=== PATIENT | male | born 1970 | race Caucasian/White ===

== ENCOUNTER → 2022-02-18 15:32 | Outpatient (CLI) | payer OTHER, SELFPAY ==
--- NOTE | ~2022-02-18 | US_ITS ---
EXAMINATION: US soft tissue head and neck DATE: 02/18/2022 16:11 INDICATION: Right neck mass. TECHNIQUE: Multiple grayscale and Doppler ultrasound images of the neck were obtained. COMPARISON: None FINDINGS: There is a 2.2 x 0.7 x 1.9 cm hyperechoic mass in the patient's area of concern in right po sterior neck. IMPRESSION: 1. 2.2 cm hyperechoic mass in the patient's area of concern in right posterior neck, most likely a li zack. Reviewed, dictated and finalized at location A. NURSE IMPRESSION: 1. 2.2 cm hyperechoic mass in the patient's area of concern in right posterior neck, most likely a lipoma.
== END ==
PROVIDERS: PCP Internal Medicine; Visit Provider Internal Medicine
DX: Z87.891 Personal history of nicotine dependence (principal); R22.0 Localized swelling, mass and lump, head; R22.1 Localized swelling, mass and lump, neck
CPT/HCPCS: 76536

== ENCOUNTER 2022-04-05 00:34 | Day surgery (SDC) | payer OTHER, SELFPAY ==
[2022-03-26 16:10] VITALS: BMI 31.1
--- NOTE | 2022-03-26 16:15 | SUR.PREOP ---
Report to the Outpatient Waiting Room, entrance under the green pavilion located off [facility], at time 0600 on date 04/05/22. Planned Procedure Time: 0730. Time changes happen often and if your time is changed the preop area will call you the afternoon before. - You and your visitor will be asked to self-screen and do not enter if you have any COVID symptoms. - Only one visitor is requested with a max of two and NO children visitors are allowed at this time. - The patient visitor may be requested to leave or wait in car when not with patient due to distancing restrictions. - A mask is optional within the hospital. Patients may have clear liquids (water, carbonated beverages, clear teas, apple juice) until 3 hours prior to surgery with a maximum of 20 ounces. - No food from midnight until time of surgery - Infants may have breast milk until 4 hours before surgery, infant formula 6 hours prior to surgery. - Children will be allowed to drink immediately following surgery. If applicable, please bring a bottle or sippy cup to assist with drinking. Juice, water, soda, and popsicles are readily available. For infants on formula, please bring formula the day of surgery. Pacifiers are allowed. Take the following medications with a SIP of water the morning of surgery: ___AMLODIPINE Medications to discontinue per physician VITAMINS AND SUPPLEMENTS 3 DAYS PRIOR_HOLD OMEPRAZOLE DAY OF SURGERY Date to take last dose Please no make-up, nail burundian, hairspray, perfume, deodorant, or body powder the day of surgery. No jewelry (including any body piercings) or valuables the day of surgery, leave them at home. Please take a shower or bath the night before, or the morning of, surgery with an antibacterial soap. Wear comfortable, loose fitting clothing. Children are encouraged to wear pajamas. - Jewelry must be removed prior to entering the operating room. Rings and piercings that are not removed may be cut off. - The hospital will not accept responsibility for valuables. - Please leave all valuables, including medications, at home the day of surgery. If you are going home after surgery, a licensed customer service driver must drive you home. - NO public transportation without another adult if you receive anesthesia. - We recommend that an adult stay with you for 24 hours following discharge. - We also recommend that you do not drive, make important decision, drink alcoholic beverages, or take any drugs that were not prescribed by your health care provider for at least 24 hours after your discharge time. For Pediatric surgeries, we recommend two adults accompany the child home. Follow any additional instructions given to you from your surgeon. If you or anyone in your household have experienced Covid symptoms in the past week, please notify your surgeon or the nurse liaison at the phone number below for possible testing. Telephone instructions given to _PATIENT__and asked if any additional questions and then verbalized understanding. Patient advised to call surgeon office or pre surgery nurse liaison [phone] if any additional questions.
--- NOTE | 2022-04-03 19:02 | PM.SD2 ---
Same Day Admit/Disch: HPI History of Present Illness Chief complaint: subcutaneous mass of neck Narrative: Andrea Vasquez is a 52 year old male who noted a subcutaneous mass in the right posterior neck in December. This has been tender and sometimes painful. An U/S showed a 2.2cm mass most consistent with a lipoma. He is taken to surgery now for excision. [facility] Past Medical History Medical History GERD (gastroesophageal reflux disease) Hypertension Surgical History Surgical History S/P cervical spinal fusion Family History Family History Father [place] (myocardial infarction) Hypertension Mother Scoliosis Sibling Hypertension Breast cancer Heart disease Bladder cancer Unknown Heart disease Cerebrovascular accident Hypertension Social History Social History Smoking status: Former smoker Alcohol intake: current Living arrangements: with family Spiritual care concerns: No Same Day Admit/Disch: Med Pre-admit Medications Home Medications Medication Instructions Recorded Confirmed Type amlodipine 5 mg tablet 5 mg PO DAILY 02/26/22 04/05/22 History multivitamin 1 tablet PO DAILY 02/26/22 04/05/22 History omeprazole 40 mg capsule,delayed 40 mg PO DAILY 03/26/22 04/05/22 History release hydrocodone 5 mg-acetaminophen 325 1 - 2 tablet PO Q6H PRN pain #12 04/05/22 Rx mg tablet tabs ketorolac 10 mg tablet 10 mg PO Q6H 4 days #16 tabs 04/05/22 Rx Exam Const: General: comfortable, no acute distress, alert and awake HENMT: Head: normocephalic and atraumatic Mouth: Yes Normal oral and palatal mucosa present Eyes: Conjunctivae: conjunctivae normal Pupils: Equal, round and reactive pupils present EOM: EOMs intact bilaterally Neck: Neck: no lymphadenopathy, supple, nontender and other (2x2 cm flattened sq mass posterolateral right neck) Resp: Effort & Inspection: normal respiratory effort Auscultation: clear to auscultation bilaterally Cardio: Rate: regular rate Rhythm: regular rhythm Heart sounds: no gallops, no murmurs and no rubs GI: Inspection: non-distended GI Palp: Yes Soft to palpation, No Tenderness to palpation present (GI), No Hepatomegaly present and No Splenomegaly present Skin: Lesions: no lesions Rashes: no rashes Neuro: General: no focal motor deficits and CN's II-XI intact bilaterally Cranial nerves: Yes Equal, round and reactive pupils present, Yes Bilaterally intact EOM present, Yes facial symmetry and Yes Midline tongue present Speech: normal speech Motor exam (neuro): 5/5 motor strength present throughout and Motor abnormalities not present Extrem: General: no clubbing, cyanosis or edema and edema Psych: Affect: normal affect Thought process: Normal thought process present Insight: Good insight present (Psych) DS: Summary Time Spent with Patient Time attestation: Total time spent providing and/or coordinating discharge services: DS: Admitting Diagnosis Discharge Date 04/05/22 Admitting Diagnosis subcutaneous mass right posterolateral neck c/w lipoma. Plan to excise under anesthesia as an outpatient. Procedure, risks, benefits, discussed. All questions answered. He agrees to go ahead. DS: Discharge Diagnosis Discharge Diagnosis (1) Subcutaneous mass of neck: Code(s): R22.1 - Localized swelling, mass and lump, neck Status: Chronic Assessment and Plan: Excised 04/05/[address] Shah. Gross findings consistent with lipoma. Discharge Plan Discharge Patient Disposition: Home, Self-Care Discharge Instructions: Ambulate 3-4 x per day and as tolerated. No lifting over 15-20lbs for 1 week. May bathe or shower on Friday. Leave dressing in place until then. Stairs are OK. May drive a car in 2 days. Remov
[2022-04-05 06:22] VITALS: BP 129/85; PULSE 80; RESP 16; TEMP 36.2; O2SAT 98
[2022-04-05] MEDS: LACTATED RINGERS 1,000 ML 30 ML IV CONT (06:39)
[2022-04-05 06:40] VITALS: RESP 16
--- NOTE | 2022-04-05 06:52 | WPDANESEPPF ---
Anes - Initial Pre Proc Eval Procedure: Operation Date: 04/05/22 07:30 Proposed Procedures p Excision of Subcutaneous Mass Right Posterior Neck - Tom Shah MD Date/Time: 04/05/22 06:52 Surgeon: Tom Shah MD Pre Op Diagnosis: subcutaneous mass of neck Patient Data Age: 52 Gender: M Height: 1.73 m Weight: 95 kg Last Vital Signs Temp 36.2 C L 04/05/22 06:22 Pulse 80 04/05/22 06:22 Resp 16 04/05/22 06:40 BP 129/85 04/05/22 06:22 Pulse Ox 98 04/05/22 06:22 O2 Del Method Room Air 04/05/22 06:22 Allergies Allergy/AdvReac Type Severity Reaction Status Date / Time No Known Allergies Allergy Verified 04/05/22 06:13 Home Medications Medication Instructions Recorded Confirmed Type amlodipine 5 mg tablet 5 mg PO DAILY 02/26/22 04/05/22 History multivitamin 1 tablet PO DAILY 02/26/22 04/05/22 History omeprazole 40 mg capsule,delayed 40 mg PO DAILY 03/26/22 04/05/22 History release Patient hx anesthesia problems: none Family hx anesthesia problems: none Results Review: All pre-operative results and documents have been reviewed as part of the pre-operative evaluation. [facility] Past Medical History Medical History GERD (gastroesophageal reflux disease) Hypertension Surgical History Surgical History S/P cervical spinal fusion Family History Family History Father [place] (myocardial infarction) Hypertension Mother Scoliosis Sibling Hypertension Breast cancer Heart disease Bladder cancer Unknown Heart disease Cerebrovascular accident Hypertension Social History Social History Smoking status: Former smoker Alcohol intake: current Living arrangements: with family Spiritual care concerns: No Anes - Eval Final PreProcedure Day of Procedure 04/05/22 06:52 Patient weight: obese Heart: regular rate and rhythm Lungs: clear to auscultation Airway: Mallampati scale class II Neurological: alert and oriented Last oral intake: >/= 8 hours ASA classification: II Emergent: no Anesthetic plan: proceed Anesthesia type and monitoring: general GIVS and standard monitoring Results Review: All pre-operative results and documents have been reviewed as part of the pre-operative evaluation. Informed Consent: The patient's anesthetic plan and its attendant risks and benefits were discussed with the patient/family/POA. Questions were solicited and answers provided to the satisfaction of the patient/family/POA.
--- NOTE | 2022-04-05 07:09 | WPDHPUPDATE1 ---
History and Physical Update Update Date/Time: 04/05/22 07:09 History and Physical has been reviewed, including an updated exam of the patient. There are NO changes in the patient's condition. Risks, benefits, and alternatives have been discussed and questions answered. Patient agrees to proceed with procedure.
[2022-04-05] MEDS: ceFAZolin 2 GM/D5W 50 ML 2 GM/50 ML BAG IVPB (07:23)
[2022-04-05] MEDS: BUPIVACAINE/EPINEPHRINE 0.5% 10 ML VIAL 30 ML INFILTRATE (07:55)
[2022-04-05 08:15] VITALS: BP 107/64; PULSE 80; RESP 14; O2SAT 99
--- NOTE | 2022-04-05 08:25 | W.PM.PROC2 ---
Procedure Note - Detailed Date of Procedure 04/05/22 Pre-op Diagnosis subcutaneous mass of neck Post-op Diagnosis Same Procedure Performed Excision 3 cm subcutaneous mass right posterior neck Surgeon Tom Shah MD Clerical Assistant Erinn CISNEROS BODY ART TECHNICIAN Anesthesia MAC and Local (0.5% Marcaine with epinephrine) Indications Patient noticed a flattened 2-3 cm subcutaneous mass of the right posterior neck on the border of the trapezius muscle. Ultrasound suggested this was a lipoma. Clinically it is consistent with a lipoma. He is taken to surgery now for excision Findings Lesion was pretty indistinct. I excised the muscular fascia with the overlying subcutaneous and did see what appeared to be a lipoma but I needed to remove some of the normal subcutaneous with it to ensure complete excision. Description of Procedure Patient was taken to surgery and placed in left lateral decubitus position. I had marked the area of the lesion on his right posterior neck in the preoperative holding area. He was positioned so that this area was exposed. Prep and drape was then carried out a. Local anesthesia was infiltrated over the area of the anticipated incision. Then additional local was infiltrated all around the subcutaneous mass. Incision was made over the mass and then dissection was carried down through the skin and the superficial subcutaneous. I continued the dissection and really could not tell a distinct lipoma from the subcutaneous. I went down to the level of the muscular fascia and even through the fascia. No lipoma was noted deep to the fascia either. I could still palpate the subcutaneous mass and started on the lower aspect of the incision and excised the subcutaneous over the palpable lesion. I removed it with some of the overlying muscular fascia was able to see some lipomatous tissue as this was excised. Cautery was used for hemostasis. I then went to the cranial aspect of the incision and in similar fashion excise subcutaneous down to and including some of the muscular fascia to completely excise the area where the subcutaneous mass was located. The mass was removed in 2 pieces and sent to pathology in formalin. I then infiltrated additional local. Cautery was used to achieve good hemostasis. Some 4-0 Vicryl subcutaneous interrupted sutures were then placed. The skin was closed with 4 0 nylon vertical mattress skin suture. The wound was dressed with Xeroform gauze, 4x4s and Medipore tape. Patient was returned to a supine position, awakened and taken to outpatient surgery in good condition. Sponge and needle counts were correct x2. Estimated Blood Loss -5 Drains No Packing No Pathology Yes (Subcutaneous mass right posterior neck consistent with lipoma) Complications No immediate complications Condition Stable Disposition Same day [facility] Billing Surgery - Charge Forward: Surgery Billing (Excision 3 cm subcutaneous mass right posterior neck)
[2022-04-05 08:45] VITALS: BP 113/63; PULSE 73; RESP 14; O2SAT 99
[2022-04-05 09:10] VITALS: BP 134/89; PULSE 60; RESP 14
== END 2022-04-05 09:20 | disposition home or self-care (01) ==
PROVIDERS: PCP Internal Medicine; Visit Provider Surgery
PROC: (CPT 21552; principal; 2022-04-05 07:30)
DX: R22.1 Localized swelling, mass and lump, neck (principal); I10 Essential (primary) hypertension; K21.9 Gastro-esophageal reflux disease without esophagitis; Z98.1 Arthrodesis status; Z87.891 Personal history of nicotine dependence; E66.9 Obesity, unspecified; Z68.31 Body mass index [BMI] 31.0-31.9, adult
CPT/HCPCS: 21552; 88304; J0690; J2250; J2704; J3010; J7120